=== PATIENT | female | born 1990 | race African-American/Black ===

== ENCOUNTER 2017-05-02 06:30 | Inpatient (IN) | payer OTHER ==
[2017-05-02] MEDS ORDERED: DEXTROSE 5%-LACTATED RINGERS 500 ML IV ONE (06:35)
[2017-05-02] MEDS ORDERED: TUBERCULIN PPD 5 TU/0.1ML SYRINGE (IN PATIENT USE ONLY) ID ONE (07:12)
[2017-05-02] MEDS ORDERED: DEXTROSE 5%-LACTATED RINGERS 1,000 ML IV SCH (07:35)
[2017-05-02 07:36] VITALS: BMI 31.6
[2017-05-02 08:25] LABS: BASOPHIL 0.2 % (0-2.0); EOSINOPHIL 0.2 % (0-4.5); MEAN CELL VOLUME 84.8 fl (80-96); MEAN PLT VOLUME 8.3 fl (7.5-11.1); NEUTROPHILS 75.4 % (42.8-82.8); PLATELET COUNT 230 K/MM3 (134-434); RDW 15.7 % (11.6-15.6); WHITE BLOOD COUNT 6.4 K/mm3 (4.0-10.0)
[2017-05-02 08:41] LABS: INR 0.97 (0.82-1.09)
[2017-05-02 08:42] LABS: ALBUMIN 2.7 g/dl (3.4-5.0); ANION GAP 11 (8-16); CALCIUM 9.1 mg/dL (8.5-10.1); CO2 23 mmol/L (21-32); CREATININE 0.6 mg/dL (0.55-1.02); GLUCOSE,RANDOM 129 mg/dL (74-106); SGOT/AST 14 U/L (15-37); SGPT/ALT 14 U/L (12-78)
[2017-05-02 08:44] LABS: ACTIVATED PTT 25.6 SECONDS (26.9-34.4); ALK PHOS 145 U/L (45-117); BILIRUBIN,TOTAL 0.4 mg/dL (0.2-1.0); TOT PROT 6.6 g/dl (6.4-8.2)
[2017-05-02] MEDS ORDERED: DEXTROSE 5%-LACTATED RINGERS 500 ML IV SCH (08:45)
[2017-05-02] MEDS ORDERED: BUTORPHANOL TARTRATE 1 MG/ML VIAL IVPB ONE (10:00)
[2017-05-02] MEDS ORDERED: PROMETHAZINE HCL 25 MG/1 ML VIAL IVPB ONE (10:00)
[2017-05-02] MEDS ORDERED: ELECTROLYTE-148 SOLN 500 ML IV SCH (12:00)
--- NOTE | 2017-05-02 12:11 | HP ---
Past Medical History - Admission Chief Complaint: Rupture of membrane History of Present Illness: 26 yo , @ 39 weeks gestation, EDC 05/05/17, presents c/o rupture of membrane. Upon arrival she was grossly ruptured. History Source: Patient Limitations to Obtaining History: No Limitations - Past Medical History ...: 1 ...Para: 0 ...Term: 0 ...: 0 ...Spon : 0 ...Induced : 0 ...LMP: 07/29/16 ... Weeks Gestation by Dates: 39.3 ...EDC by Dates: 05/05/17 - Past Surgical History Past Surgical History: Yes: None Hx Myomectomy: No Hx Transabdominal Cerclage: No - Smoking History Smoking history: Never smoked - Alcohol/Substance Use Hx Alcohol Use: No History of Substance Use: reports: None - Social History History of Recent Travel: No Home Medications - Allergies Allergies/Adverse Reactions: Allergies Allergy/AdvReac Type Severity Reaction Status Date / Time No Known Allergies Allergy Verified 05/02/17 07:47 - Home Medications Home Medications: Ambulatory Orders Vit/Iron Fumarate/FA [ Tablet] 1 each PO DAILY 05/02/17 Family Disease History - Family Disease History Family History: Unremarkable Review of Systems - Review of Systems Constitutional: reports: No Symptoms Eyes: reports: No Symptoms HENT: reports: No Symptoms Neck: reports: No Symptoms Cardiovascular: reports: No Symptoms Respiratory: reports: No Symptoms Gastrointestinal: reports: No Symptoms Genitourinary: reports: No Symptoms, Other (Ruptured) Breasts: reports: No Symptoms Reported Musculoskeletal: reports: No Symptoms Integumentary: reports: No Symptoms Neurological: reports: No Symptoms Endocrine: reports: No Symptoms Hematology/Lymphatic: reports: No Symptoms Psychiatric: reports: No Symptoms Pain Intensity: 4 Physical Exam - Maternity Vital Signs: Vital Signs Temperature 97.7 F 05/02/17 12:00 Pulse Rate 77 05/02/17 12:00 Respiratory Rate 20 05/02/17 12:00 Blood Pressure 117/73 05/02/17 12:00 O2 Sat by Pulse Oximetry (%) Constitutional: Yes: Well Nourished Eyes: Yes: Conjunctiva Clear HENT: Yes: Atraumatic Neck: Yes: Supple Cardiovascular: Yes: Regular Rate and Rhythm Lungs: Clear to auscultation Breast(s): Yes: WNL - Abdominal Exam/OB Number of Fetuses: Single Presentation: Vertex Contractions: Yes Category: I - Vaginal Exam/OB Vaginal Bleediing: No Dilatation (cm): 5 Effacement (%): 100 Amniotic Membrane Status: Ruptured Meconium: Light Presentation: Vertex/Position Station: -1 - Physical Exam Extremities: Yes: WNL ...Motor Strength: WNL Psychiatric: Yes: Alert, Oriented - Labs Lab Results: CBC, BMP 05/02/17 07:40 05/02/17 07:40 Problem List - Problems (1) Spontaneous rupture of membranes Code(s): [id number] - Assessment/Plan Spontaneous rupture of membrane Admit to L&D Analgesia as needed Anticipate
[2017-05-02] MEDS ORDERED: OXYTOCIN 15 UNITS/ LR 250 ML 15 UNIT/250 ML INFUS.BAG IVPB SCH (12:15)
[2017-05-02] MEDS ORDERED: ELECTROLYTE-148 SOLN 1,000 ML IV SCH (12:30)
[2017-05-02] MEDS: FENTANYL/BUPIVACAINE/NS/PF - PCEA - 50 ML DISP.SYRIN EP SCH ×2 (12:30→12:52)
[2017-05-02] MEDS ORDERED: FENTANYL/BUPIVACAINE/NS/PF - PCEA - 50 ML DISP.SYRIN EP SCH (13:00)
[2017-05-02] MEDS ORDERED: METHYLERGONOVINE MALEATE 0.2 MG/1 ML AMP IM PRN (18:22)
[2017-05-02] MEDS ORDERED: BENZOCAINE 28 GM HEMORRHOIDAL OINTMENT TP PRN (18:22)
[2017-05-02] MEDS ORDERED: WITCH HAZEL 50% (TUCKS) 40 PAD/JAR PAD TP PRN (18:22)
[2017-05-02] MEDS ORDERED: BENZOCAINE 20% 57 GM BOTTLE TP PRN (18:22)
[2017-05-02] MEDS ORDERED: BISACODYL 10 MG SUPP.RECT RC PRN (18:22)
--- NOTE | 2017-05-02 18:26 | PN ---
Delivery - Delivery Type of Anesthesia: Epidural Episiotomy/Laceration: 2nd degree EBL (cc): 300 Delivery, Single - Stages of Labor Date 1st Stage Initiatied: 05/02/17 Time 1st Stage Initiated: 06:00 - Feeding Plan Initial Plan: Elected not to breastfeed exclusively throughout hospitalization Remarks - Remarks Remarks: Normal spontaneous vaginal delivery of a live girl over second degree laveration. Nose / Oropharynx suctioned @ perineum. Cord clamped and cut. Placenta expelled spontaneously intact. Laceration repaired with 2.0 Chromic and 2.o Biosyn.
[2017-05-02] MEDS ORDERED: OXYTOCIN 20 UNITS in 0.9% NS 20 UNIT/1,000 ML INFUS.BAG IV SCH (18:30)
[2017-05-02] MEDS: IBUPROFEN 600 MG TABLET (FP) PO PRN (22:37)
[2017-05-02] MEDS: ACETAMINOPHEN 325 MG TABLET (FP) PO PRN (22:37)
[2017-05-03 07:22] LABS: BASOPHIL 0.3 % (0-2.0); EOSINOPHIL 0.3 % (0-4.5); MCH 28.1 pg (25.7-33.7); MEAN CELL VOLUME 85.2 fl (80-96); MEAN PLT VOLUME 8.4 fl (7.5-11.1); NEUTROPHILS 77.8 % (42.8-82.8); PLATELET COUNT 190 K/MM3 (134-434); RDW 15.8 % (11.6-15.6); WHITE BLOOD COUNT 12.5 K/mm3 (4.0-10.0)
[2017-05-03] MEDS: IBUPROFEN 600 MG TABLET (FP) PO PRN ×2 (07:41→20:37)
[2017-05-03] MEDS: ACETAMINOPHEN 325 MG TABLET (FP) PO PRN ×2 (07:43→20:38)
[2017-05-03] MEDS: FERROUS SO4 325 MG TABLET (FP) PO SCH ×3 (08:56→16:54)
[2017-05-03] MEDS: PRENATAL VITAMINS W/ FOLIC ACID TABLET (FP) PO SCH (09:02)
--- NOTE | 2017-05-03 09:34 | PN ---
Post Progress Note - Subjective Subjective: 26 yo Para 1 status post normal vaginal delivery seen and evaluated. She's out of bed to chair. Doing well, no complaints. Post Day: 1 Type of Delivery: Vital Signs: Vital Signs Temperature 98.4 F 05/03/17 07:30 Pulse Rate 76 05/03/17 07:30 Respiratory Rate 20 05/03/17 07:30 Blood Pressure 118/74 05/03/17 07:30 O2 Sat by Pulse Oximetry (%) 99 05/02/17 19:30 Breast Exam: Yes: Soft Uterus: Yes: Fundus Firm Abdomen/GI: Yes: Abdomen soft Lochia: Yes: Rubra Lochia, amount: Moderate Extremities: Yes: Calves non-tender Perineum: Yes: Laceration (Healing) Activity: Ambulating - Labs Labs: CBC WBC 12.5 K/mm3 (4.0-10.0) H D 05/03/17 06:40 RBC 3.29 M/mm3 (3.60-5.2) L 05/03/17 06:40 Hgb 9.3 GM/dL (10.7-15.3) L D 05/03/17 06:40 Hct 28.1 % (32.4-45.2) L D 05/03/17 06:40 MCV 85.2 fl (80-96) 05/03/17 06:40 MCH 28.1 pg (25.7-33.7) 05/03/17 06:40 MCHC 33.0 g/dl (32.0-36.0) 05/03/17 06:40 RDW 15.8 % (11.6-15.6) H 05/03/17 06:40 Plt Count 190 K/MM3 (134-434) 05/03/17 06:40 MPV 8.4 fl (7.5-11.1) 05/03/17 06:40 Neutrophils % 77.8 % (42.8-82.8) 05/03/17 06:40 Lymphocytes % 12.9 % (8-40) D 05/03/17 06:40 Monocytes % 8.7 % (3.8-10.2) D 05/03/17 06:40 Eosinophils % 0.3 % (0-4.5) 05/03/17 06:40 Basophils % 0.3 % (0-2.0) 05/03/17 06:40 Problem List - Problems (1) Spontaneous rupture of membranes Code(s): [id number] - Assessment/Plan Status post vaginal delivery Stable Continue routine care
[2017-05-03] MEDS ORDERED: SENNOSIDES/DOCUSATE COMBO (SENNA PLUS) TABLET (UD) PO PRN (22:00)
[2017-05-04] MEDS: IBUPROFEN 600 MG TABLET (FP) PO PRN (08:16)
[2017-05-04] MEDS: FERROUS SO4 325 MG TABLET (FP) PO SCH ×2 (08:16→12:46)
[2017-05-04] MEDS: ACETAMINOPHEN 325 MG TABLET (FP) PO PRN (08:17)
--- NOTE | 2017-05-04 08:19 | DS ---
Physical Exam-[employer] Vital Signs: Vital Signs Temperature 98.5 F 05/03/17 21:00 Pulse Rate 71 05/03/17 21:00 Respiratory Rate 20 05/03/17 21:00 Blood Pressure 104/61 05/03/17 21:00 O2 Sat by Pulse Oximetry (%) 99 05/02/17 19:30 Constitutional: Yes: Well Nourished Eyes: Yes: Conjunctiva Clear HENT: Yes: Atraumatic Neck: Yes: Supple Cardiovascular: Yes: Regular Rate and Rhythm Respiratory: Yes: Regular Gastrointestinal: Yes: Normal Bowel Sounds Pelvis: Yes: WNL External Genitalia: Yes: Normal Uterus: Yes: Firm ....Post : Yes: Uterus firm, Moderate lochia serosa Breast(s): Yes: WNL Musculoskeletal: Yes: WNL Extremities: Yes: WNL Neurological: Yes: Alert, Oriented ...Motor Strength: WNL Psychiatric: Yes: Alert, Oriented Labs: CBC, BMP 05/03/17 06:40 05/02/17 07:40 Delivery - Delivery Type of Anesthesia: Epidural Episiotomy/Laceration: 2nd degree EBL (cc): 300 Delivery, Single - Stages of Labor Date 1st Stage Initiatied: 05/02/17 Time 1st Stage Initiated: 06:00 Date 2nd Stage Initiated: 05/02/17 Time 2nd Stage Initiated: 17:20 Date of Delivery: 05/02/17 Time of Delivery: 17:55 Time Placenta Delivered: 17:57 - Condition of Infant Gender: Female Weight: 6 lb 7 oz Position: Right, OA Total Hours ROM (Hrs/Mins): 12:05 - 1 Minute Total Score: 9 5 Minutes Total Score: 9 - Feeding Plan Initial Plan: Elected not to breastfeed exclusively throughout hospitalization Discharge Summary Reason For Visit: LABOR ADMIT Current Active Problems Spontaneous rupture of membranes (Acute) Status post normal vaginal delivery (Acute) Procedures: Principal: Normal spontaneous vaginal delivery Hospital Course: Routine care Condition: Good - Instructions Diet, Activity, Other Instructions: Regular diet No douching, no sexual intercourse x 6 weeks F/U in clinic in 6 weeks Disposition: HOME - Home Medications Comprehensive Discharge Medication List: Ambulatory Orders Vit/Iron Fumarate/FA [ Tablet] 1 each PO DAILY 05/02/17
[2017-05-04 09:00] VITALS: BP 133/81; PULSE 78; TEMP 97.8
[2017-05-04] MEDS: PRENATAL VITAMINS W/ FOLIC ACID TABLET (FP) PO SCH (09:34)
== END 2017-05-04 16:00 | disposition home or self-care (01) | DRG 560 ==
LOC: JLDR 06:30 → J3W 20:15
PROVIDERS: ADMIT Obstetrics & Gynecology; ATTEND Obstetrics & Gynecology
PROC: 0KQM0ZZ Repair Perineum Muscle, Open Approach (ICD-10-PCS; principal; 2017-05-02)
DX: O70.1 Second degree perineal laceration during delivery (principal); Z3A.39 39 weeks gestation of pregnancy; Z37.0 Single live birth
CPT/HCPCS: 36415; 59409; 80053; 85025; 85610; 85730; 86593; 86850; 86900; 86901

== ENCOUNTER 2020-06-24 10:33 | Inpatient (IN) | payer OTHER ==
[2020-06-24] MEDS ORDERED: PROMETHAZINE HCL 25 MG/1 ML VIAL IVPB ONE (11:41)
[2020-06-24] MEDS ORDERED: BUTORPHANOL TARTRATE 1 MG/ML VIAL IVPB PRN (11:41)
[2020-06-24] MEDS ORDERED: OXYTOCIN 30 UNITS in 0.9% NS 30 UNIT/500 ML INFUS.BAG IVPB SCH (11:45)
[2020-06-24 11:53] LABS: BASO % 0.5 % (0-2.0); EOS % 0.2 % (0-4.5); HEMATOCRIT 32.5 % (32.4-45.2); HEMOGLOBIN 10.6 GM/dL (10.7-15.3); LYMPH % 17.6 % (8-40); MCH 26.7 pg (25.7-33.7); MCHC 32.7 g/dl (32.0-36.0); MEAN CELL VOLUME 81.7 fl (80-96); MEAN PLT VOLUME 8.9 fl (7.5-11.1); MONO % 9.8 % (3.8-10.2); NEUT % 71.9 % (42.8-82.8); PLATELET COUNT 242 K/MM3 (134-434); RBC 3.98 M/mm3 (3.60-5.2); RDW 16.6 % (11.6-15.6); WHITE BLOOD COUNT 6.9 K/mm3 (4.0-10.0)
[2020-06-24 11:55] LABS: INR 0.94 (0.83-1.09); PROTHROMBIN TIME (PATIENT) 11.4 SEC (9.7-13.0)
[2020-06-24 11:57] LABS: ACTIVATED PTT 23.7 SECONDS (25.2-36.5)
[2020-06-24 12:05] VITALS: BMI 33.4
[2020-06-24] MEDS ORDERED: OXYTOCIN 30 UNITS in 0.9% NS 30 UNIT/500 ML INFUS.BAG IVPB ONE (12:12)
[2020-06-24 12:21] LABS: CALCIUM 9.1 mg/dL (8.5-10.1)
[2020-06-24 12:22] LABS: BLOOD UREA NITROGEN 7.9 mg/dL (7-18)
[2020-06-24 12:25] LABS: CREATININE 0.6 mg/dL (0.55-1.3)
[2020-06-24] MEDS: ELECTROLYTE-148 SOLN 1,000 ML IV SCH ×3 (12:30→19:45)
[2020-06-24] MEDS ORDERED: PCA PUMP NR ONE ×2 (14:39→18:58)
[2020-06-24] MEDS ORDERED: FENTANYL/BUPIVACAINE/NS/PF - PCEA - 50 ML DISP.SYRIN EP ONE ×3 (14:39→21:46)
[2020-06-24] MEDS ORDERED: NALOXONE HCL 0.4 MG/ML VIAL IVPUSH PRN (15:16)
[2020-06-24] MEDS ORDERED: FENTANYL/BUPIVACAINE/NS/PF - PCEA - 50 ML DISP.SYRIN EP SCH (15:30)
[2020-06-24] MEDS ORDERED: BUPIVACAINE HCL/PF 0.25% (2.5MG/ML) 10 ML VIAL ONE (20:26)
[2020-06-24] MEDS ORDERED: SODIUM CHLORIDE 0.9% P/F 10 ML VIAL IJ ONE (20:27)
[2020-06-24] MEDS ORDERED: OXYTOCIN 20 UNITS in 0.9% NS 20 UNIT/1,000 ML INFUS.BAG IV ONE (21:51)
[2020-06-24] MEDS ORDERED: LIDOCAINE HCL 1% PRESERVATIVE FREE - 30ML VIAL ONE (21:51)
[2020-06-24] MEDS ORDERED: BISACODYL 10 MG SUPP.RECT RC PRN (22:51)
[2020-06-24] MEDS ORDERED: METHYLERGONOVINE MALEATE 0.2 MG/1 ML AMP IM PRN (22:51)
[2020-06-24] MEDS ORDERED: WITCH HAZEL 50% (TUCKS) 40 PAD/JAR PAD TP PRN (22:51)
[2020-06-24] MEDS ORDERED: BENZOCAINE 20% 57 GM BOTTLE TP PRN (22:51)
[2020-06-24] MEDS ORDERED: BENZOCAINE 28 GM HEMORRHOIDAL OINTMENT TP PRN (22:51)
[2020-06-24] MEDS ORDERED: OXYTOCIN 20 UNITS in 0.9% NS 20 UNIT/1,000 ML INFUS.BAG IV SCH (23:00)
[2020-06-25] MEDS ORDERED: IBUPROFEN 600 MG TABLET (FP) PO ONE (00:22)
[2020-06-25] MEDS ORDERED: ACETAMINOPHEN 325 MG TABLET (FP) ONE (00:22)
[2020-06-25] MEDS: ACETAMINOPHEN 325 MG TABLET (FP) PO PRN ×2 (00:25→05:59)
[2020-06-25] MEDS: IBUPROFEN 600 MG TABLET (FP) PO PRN ×2 (00:25→05:58)
[2020-06-25 09:24] LABS: BASO % 0.3 % (0-2.0); HEMATOCRIT 33.6 % (32.4-45.2); HEMOGLOBIN 10.9 GM/dL (10.7-15.3); LYMPH % 9.5 % (8-40); MCH 26.6 pg (25.7-33.7); MCHC 32.5 g/dl (32.0-36.0); MEAN CELL VOLUME 81.9 fl (80-96); MEAN PLT VOLUME 8.2 fl (7.5-11.1); MONO % 5.6 % (3.8-10.2); NEUT % 84.6 % (42.8-82.8); PLATELET COUNT 213 K/MM3 (134-434); RDW 16.9 % (11.6-15.6)
[2020-06-25] MEDS: PRENATAL VITAMINS W/ FOLIC ACID TABLET (FP) PO SCH (09:24)
[2020-06-25] MEDS ORDERED: SENNOSIDES/DOCUSATE COMBO (SENNA PLUS) TABLET (UD) PO PRN (22:00)
[2020-06-26] MEDS: PRENATAL VITAMINS W/ FOLIC ACID TABLET (FP) PO SCH (09:39)
[2020-06-26 10:31] VITALS: BP 134/80; PULSE 83; TEMP 98.4
== END 2020-06-26 13:35 | disposition home or self-care (01) | DRG 560 ==
LOC: JLDR 10:33 → J3W 06-25 01:15
PROVIDERS: ADMIT Obstetrics & Gynecology; ATTEND Obstetrics & Gynecology
PROC: 10E0XZZ Delivery of Products of Conception, External Approach (ICD-10-PCS; principal; 2020-06-24)
PROC: 0HQ9XZZ Repair Perineum Skin, External Approach (ICD-10-PCS; 2020-06-24)
DX: O48.0 Post-term pregnancy (principal); O70.0 First degree perineal laceration during delivery; Z3A.40 40 weeks gestation of pregnancy; Z37.0 Single live birth
CPT/HCPCS: 36415; 59409; 80048; 85025; 85610; 85730; 86780; 86850; 86900; 86901

== ENCOUNTER 2022-06-19 02:58 | Observation (INO) | payer OTHER ==
[2022-06-19 03:18] VITALS: BMI 29.1
[2022-06-19] MEDS ORDERED: LACTATED RINGERS SOLUTION 1000 ML INFUS.BAG IV ONE (04:26)
[2022-06-19] MEDS ORDERED: ACETAMINOPHEN 1000 MG/100 ML BAG IVPB ONE (04:26)
[2022-06-19] MEDS ORDERED: ACETAMINOPHEN INJECTION 100 ML IVPB ONE (04:44)
[2022-06-19 07:02] LABS: BASO % 0.4 % (0-2.0); HEMATOCRIT 31.7 % (32.4-45.2); HEMOGLOBIN 10.3 GM/dL (10.7-15.3); LYMPH % 6.2 % (8-40); MCH 26.4 pg (25.7-33.7); MCHC 32.6 g/dl (32.0-36.0); MEAN PLT VOLUME 9.1 fl (7.5-11.1); MONO % 5.5 % (3.8-10.2); NEUT % 87.9 % (42.8-82.8); PLATELET COUNT 196 10^3/uL (134-434); RBC 3.92 M/mm3 (3.60-5.2); WHITE BLOOD COUNT 6.7 K/mm3 (4.0-10.0)
[2022-06-19 07:09] LABS: INR 1.08 (0.83-1.09); PROTHROMBIN TIME (PATIENT) 12.4 SEC (9.7-13.0)
[2022-06-19 07:12] LABS: ACTIVATED PTT 26.4 SECONDS (25.2-36.5)
[2022-06-19 07:26] LABS: CALCIUM 8.6 mg/dL (8.5-10.1)
[2022-06-19 07:27] LABS: ALBUMIN 3.8 g/dl (3.4-5.0); BLOOD UREA NITROGEN 9.2 mg/dL (7-18)
[2022-06-19 07:30] LABS: CREATININE 0.7 mg/dL (0.55-1.3)
[2022-06-19 07:32] LABS: BILIRUBIN,TOTAL 0.3 mg/dL (0.2-1); TOT PROT 7.8 g/dl (6.4-8.2)
[2022-06-19 08:09] LABS: EPI CELLS >36 /uL (0-25.1); HYALINE CASTS 6 /uL (0-3.1); PH,URINE 6.5 (5.0-8.0); URINE APPEARANCE CLOUDY; URINE BACTERIA 108 /uL (0-1359); URINE BILIRUBIN NEGATIVE (NEGATIVE); URINE COLOR DK YELLOW; URINE GLUCOSE (UA) NEGATIVE (NEGATIVE); URINE KETONE TRACE (NEGATIVE); URINE LEUK ESTERASE NEGATIVE (NEGATIVE); URINE NITRITE NEGATIVE (NEGATIVE); URINE PROTEIN 2+ (NEGATIVE); URINE RBC 24 /uL (0-23.9); URINE UROBILINOGEN 0.2 mg/dL (0.2-1.0); URINE WBC 31 /uL (0-25.8)
[2022-06-19 14:42] LABS: N-TERMINAL BNP 48.8 pg/ml (5-125)
[2022-06-19 15:48] LABS: COCAINE, UR NEGATIVE (NEGATIVE); OPIATES, URI NEGATIVE (NEGATIVE); PHENCYCLIDINE,URINE NEGATIVE (NEGATIVE); URINE AMPHETAMINES NEGATIVE (NEGATIVE); URINE BARBITURATES NEGATIVE (NEGATIVE); URINE BENZODIAZEPINES NEGATIVE (NEGATIVE)
[2022-06-19 15:53] LABS: METHADONE, UR NEGATIVE (NEGATIVE)
[2022-06-19 19:19] LABS: HIV INTERPRETATION NEGATIVE (NEGATIVE)
[2022-06-20 01:18] VITALS: RESP 18
[2022-06-20] MEDS: ACETAMINOPHEN 325 MG TABLET (FP) PO PRN ×2 (01:19→18:34)
[2022-06-20] MEDS ORDERED: ACETAMINOPHEN 325 MG TABLET (FP) ONE (01:20)
[2022-06-20 08:41] LABS: BASO % 0.5 % (0-2.0); HEMATOCRIT 32.5 % (32.4-45.2); HEMOGLOBIN 10.6 GM/dL (10.7-15.3); LYMPH % 30.4 % (8-40); MCH 26.2 pg (25.7-33.7); MCHC 32.5 g/dl (32.0-36.0); MEAN CELL VOLUME 80.6 fl (80-96); MEAN PLT VOLUME 8.9 fl (7.5-11.1); MONO % 7.9 % (3.8-10.2); NEUT % 61.2 % (42.8-82.8); PLATELET COUNT 182 10^3/uL (134-434); RBC 4.03 M/mm3 (3.60-5.2); RDW 16.2 % (11.6-15.6); WHITE BLOOD COUNT 4.2 K/mm3 (4.0-10.0)
[2022-06-20 08:46] LABS: ALBUMIN 3.3 g/dl (3.4-5.0); BLOOD UREA NITROGEN 9.5 mg/dL (7-18); CALCIUM 8.6 mg/dL (8.5-10.1)
[2022-06-20 08:47] LABS: MAGNESIUM 2.3 mg/dL (1.8-2.4)
[2022-06-20 08:49] LABS: CREATININE 0.7 mg/dL (0.55-1.3); PHOSPHOROUS 2.9 mg/dL (2.5-4.9)
[2022-06-20 08:50] LABS: BILIRUBIN,TOTAL 0.3 mg/dL (0.2-1)
[2022-06-20] MEDS: LACTATED RINGERS SOLUTION 1,000 ML/1,000 ML INFUS.BAG IV SCH (10:27)
[2022-06-20] MEDS: DOXYCYCLINE HYCLATE 100 MG CAPSULE PO SCH (17:20)
[2022-06-21 08:13] LABS: HEMATOCRIT 33.3 % (32.4-45.2); HEMOGLOBIN 10.8 GM/dL (10.7-15.3); MCH 25.9 pg (25.7-33.7); MCHC 32.3 g/dl (32.0-36.0); MEAN CELL VOLUME 80.1 fl (80-96); MEAN PLT VOLUME 8.5 fl (7.5-11.1); PLATELET COUNT 194 10^3/uL (134-434); RBC 4.16 M/mm3 (3.60-5.2); WHITE BLOOD COUNT 4.1 K/mm3 (4.0-10.0)
[2022-06-21] MEDS: DOXYCYCLINE HYCLATE 100 MG CAPSULE PO SCH ×2 (09:03→18:50)
[2022-06-21] MEDS: LACTATED RINGERS SOLUTION 1,000 ML/1,000 ML INFUS.BAG IV SCH (10:47)
[2022-06-21] MEDS: metroNIDAZOLE 250 MG TABLET PO SCH ×2 (10:57→21:26)
[2022-06-22 08:30] LABS: HEMATOCRIT 32.4 % (32.4-45.2); HEMOGLOBIN 10.7 GM/dL (10.7-15.3); MCH 26.5 pg (25.7-33.7); MEAN CELL VOLUME 80.4 fl (80-96); MEAN PLT VOLUME 8.8 fl (7.5-11.1); PLATELET COUNT 247 10^3/uL (134-434); RBC 4.03 M/mm3 (3.60-5.2); RDW 16.2 % (11.6-15.6); WHITE BLOOD COUNT 3.8 K/mm3 (4.0-10.0)
[2022-06-22 08:59] LABS: CALCIUM 8.7 mg/dL (8.5-10.1)
[2022-06-22 09:00] LABS: BLOOD UREA NITROGEN 5.2 mg/dL (7-18)
[2022-06-22 09:03] LABS: CREATININE 0.6 mg/dL (0.55-1.3)
[2022-06-22 09:04] LABS: TOT PROT 7.2 g/dl (6.4-8.2)
[2022-06-22 09:05] LABS: BILIRUBIN,TOTAL 0.2 mg/dL (0.2-1)
[2022-06-22] MEDS: metroNIDAZOLE 250 MG TABLET PO SCH (09:08)
[2022-06-22] MEDS: DOXYCYCLINE HYCLATE 100 MG CAPSULE PO SCH ×2 (09:09→17:00)
[2022-06-22 15:32] VITALS: BP 112/66; PULSE 85; TEMP 98.2
== END 2022-06-22 18:05 | disposition home or self-care (01) ==
LOC: JER 02:58 → JERBED 14:05 → J4W 06-20 01:40
PROVIDERS: ADMIT Internal Medicine; ATTEND Internal Medicine
PROC: 3E033NZ Introduction of Analgesics, Hypnotics, Sedatives into Peripheral Vein, Percutaneous Approach (ICD-10-PCS; principal; 2022-06-19)
PROC: 3E03329 Introduction of Other Anti-infective into Peripheral Vein, Percutaneous Approach (ICD-10-PCS; 2022-06-19)
PROC: 3E033GC Introduction of Other Therapeutic Substance into Peripheral Vein, Percutaneous Approach (ICD-10-PCS; 2022-06-19)
PROC: 3E0337Z Introduction of Electrolytic and Water Balance Substance into Peripheral Vein, Percutaneous Approach (ICD-10-PCS; 2022-06-19)
DX: R55 Syncope and collapse (principal); R50.9 Fever, unspecified; R79.89 Other specified abnormal findings of blood chemistry; R05.9 Cough, unspecified
CPT/HCPCS: 0241U-QW; 36415; 70450-TC; 71046-TC-FY; 71275-TC; 72193-TC; 76830-TC; 80053; 80307; 81003; 83690; 83735; 83880; 84100; 84443; 84484; 84703; 85025; 85027; 85379; 85610; 85730; 86695; 86696; 86850; 86900; 86901; 87086; 87255; 87389; 87491; 87591; 87633; 87661; 93005; 93010; 93306-TC; 94010; 96372; 96374; 96375; 99291; G0378; Q9967

== ENCOUNTER 2022-08-21 20:18 | Emergency (ER) | payer OTHER ==
[2022-08-21 20:31] VITALS: BP 103/50; PULSE 107; RESP 18; TEMP 100.3; BMI 27.3
[2022-08-21] MEDS ORDERED: METOCLOPRAMIDE HCL INJECTION 10 MG/2 ML VIAL IVPUSH ONE (21:50)
[2022-08-21] MEDS ORDERED: ACETAMINOPHEN 1000 MG/100 ML BAG IVPB ONE (21:50)
[2022-08-21] MEDS ORDERED: SODIUM CHLORIDE 0.9% 1000 ML INFUS.BAG IV ONE ×2 (21:50→22:05)
[2022-08-21] MEDS ORDERED: CEFTRIAXONE 1 GM in DEXTROSE 5%-WATER - 50 ML IVPB ONE (22:04)
[2022-08-21] MEDS ORDERED: METOCLOPRAMIDE HCL INJECTION 10 MG/2 ML VIAL ONE (22:05)
[2022-08-21] MEDS ORDERED: ACETAMINOPHEN INJECTION 100 ML IVPB ONE (22:05)
[2022-08-21 22:26] LABS: BASO % 0.1 % (0-2.0); HEMATOCRIT 31.9 % (32.4-45.2); HEMOGLOBIN 10.5 GM/dL (10.7-15.3); LYMPH % 7.2 % (8-40); MCHC 32.9 g/dl (32.0-36.0); MEAN PLT VOLUME 7.7 fl (7.5-11.1); MONO % 3.2 % (3.8-10.2); NEUT % 89.5 % (42.8-82.8); PLATELET COUNT 331 10^3/uL (134-434); RBC 4.03 M/mm3 (3.60-5.2); RDW 16.2 % (11.6-15.6); WHITE BLOOD COUNT 12.3 K/mm3 (4.0-10.0)
[2022-08-21 22:28] LABS: EPI CELLS >36 /uL (0-25.1); HYALINE CASTS 3 /uL (0-3.1); PH,URINE 5.5 (5.0-8.0); URINE APPEARANCE TURBID; URINE BACTERIA 444 /uL (0-1359); URINE BILIRUBIN NEGATIVE (NEGATIVE); URINE COLOR DK YELLOW; URINE GLUCOSE (UA) NEGATIVE (NEGATIVE); URINE KETONE 3+ (NEGATIVE); URINE LEUK ESTERASE TRACE (NEGATIVE); URINE NITRITE NEGATIVE (NEGATIVE); URINE PROTEIN 1+ (NEGATIVE); URINE RBC 17 /uL (0-23.9); URINE UROBILINOGEN 0.2 mg/dL (0.2-1.0); URINE WBC 50 /uL (0-25.8)
[2022-08-21] MEDS ORDERED: CEFTRIAXONE 1 GM/50 ML BAG ONE (22:41)
[2022-08-21 22:53] LABS: ALBUMIN 3.7 g/dl (3.4-5.0); CALCIUM 9.2 mg/dL (8.5-10.1)
[2022-08-21 22:55] LABS: BLOOD UREA NITROGEN 6.2 mg/dL (7-18)
[2022-08-21 22:57] LABS: CREATININE 0.9 mg/dL (0.55-1.3)
[2022-08-21 22:59] LABS: BILIRUBIN,TOTAL 0.5 mg/dL (0.2-1); TOT PROT 7.6 g/dl (6.4-8.2)
[2022-08-22] MEDS ORDERED: AZITHROMYCIN 250 MG TABLET PO ONE (01:37)
[2022-08-22] MEDS ORDERED: AZITHROMYCIN 250 MG TABLET ONE (01:40)
[2022-08-22] MEDS ORDERED: IBUPROFEN 600 MG TABLET (FP) PO ONE ×2 (01:41→01:43)
== END 2022-08-22 02:05 | disposition home or self-care (01) ==
LOC: JER 20:18 → JERFT 20:18 → JER 08-22 02:05
PROC: 3E033GC Introduction of Other Therapeutic Substance into Peripheral Vein, Percutaneous Approach (ICD-10-PCS; principal; 2022-08-21)
DX: N39.0 Urinary tract infection, site not specified (principal); J18.9 Pneumonia, unspecified organism
CPT/HCPCS: 0241U-QW; 36415; 74176-TC; 80053; 81003; 83605; 84703; 85025; 87040; 87086; 99285-25